=== PATIENT | male | born 1990 | race Caucasian/White ===

== ENCOUNTER 2022-01-19 16:07 | Emergency (ER) | payer OTHER ==
[~2022-01-19] VITALS: Ht 175.3 cm; Wt 78.0 kg
[2022-01-19 16:17] VITALS: BP 143/83
[2022-01-19] MEDS ORDERED: TETRACAINE 0.5% OPHTH DROPS 4ML BOTHEYE ONE (19:45)
[2022-01-19] MEDS ORDERED: FLUORESCEIN SODIUM 1MG/STRIP BOTHEYE ONE (19:45)
== END 2022-01-19 20:26 | disposition home or self-care (01) ==
LOC: ER 16:07
DX: S05.8X2A Other injuries of left eye and orbit, initial encounter (principal); X58.XXXA Exposure to other specified factors, initial encounter; Y93.89 Activity, other specified; Y92.89 Other specified places as the place of occurrence of the external cause; Y99.8 Other external cause status
CPT/HCPCS: 99281